=== PATIENT | female | born 1960 | race Caucasian/White ===

== ENCOUNTER 2018-07-31 15:43 | Emergency (ER) | payer OTHER, BC ==
[2018-07-31] MEDS ORDERED: PREDNISONE 20 MG TABLET PO ONE (17:31)
[2018-07-31] MEDS ORDERED: IPRATROPIUM/ALBUTEROL 0.5-2.5 MG/3 ML AMPUL NEB ONE (17:31)
--- NOTE | 2018-07-31 17:33 | ER Document Report ---
ED Medical Screen (RME) - General Chief Complaint: Cough Stated Complaint: COUGH Time Seen by Provider: 07/31/18 17:30 Primary Care Provider: SHOSHANA HUNTER DO [Primary Care Provider] - Follow up as needed Information source: Patient Notes: Patient presents complaining of cough for the past week and a half with wheezing and shortness of breath. Patient denies any fever. Patient denies any chest pain. I have greeted and performed a rapid initial assessment of this patient. A comprehensive ED assessment and evaluation of the patient, analysis of test results and completion of the medical decision making process will be conducted by additional ED providers. TRAVEL OUTSIDE OF THE [place] IN LAST 30 DAYS: No Physical Exam - Vital signs Vitals: Temp Pulse Resp BP Pulse Ox 98.8 F 86 18 140/88 H 97 07/31/18 16:30 07/31/18 16:30 07/31/18 16:30 07/31/18 16:30 07/31/18 16:30 - Respiratory Respiratory status: No respiratory distress Breath sounds: Nonproductive cough, Rhonchi, Wheezing Course - Vital Signs Vital signs: Temp Pulse Resp BP Pulse Ox 98.8 F 86 18 140/88 H 97 07/31/18 16:30 07/31/18 16:30 07/31/18 16:30 07/31/18 16:30 07/31/18 16:30 Doctor's Discharge - Discharge Referrals: SHOSHANA HUNTER DO [Primary Care Provider] - Follow up as needed
[2018-07-31] MEDS ORDERED: ALBUTEROL SULFATE 0.083% NEB 2.5 MG/3 ML AMPUL NEB SCH ×2 (17:47→20:15)
--- NOTE | 2018-07-31 18:04 | RADIOLOGY REPORT (SQ) ---
EXAM DESCRIPTION: CHEST 2 VIEWS COMPLETED DATE/TIME: 07/31/2018 5:57 pm REASON FOR STUDY: cough COMPARISON: 02/03/2014 EXAM PARAMETERS: NUMBER OF VIEWS: two views TECHNIQUE: Digital Frontal and Lateral radiographic views of the chest acquired. RADIATION DOSE: NA LIMITATIONS: none FINDINGS: LUNGS AND PLEURA: No opacities, masses or pneumothorax. No pleural effusion. MEDIASTINUM AND HILAR STRUCTURES: No masses or contour abnormalities. HEART AND VASCULAR STRUCTURES: Heart normal size. No evidence for failure. BONES: No acute findings. HARDWARE: Right axillary clips. Venous access catheter tip unchanged. OTHER: Right mastectomy. IMPRESSION: NO ACUTE RADIOGRAPHIC FINDING IN THE CHEST. TECHNICAL DOCUMENTATION: JOB ID: [id number] [employer]- All Rights Reserved Reading location - IP/workstation name: [email or web address]
--- NOTE | 2018-07-31 23:38 | ER Document Report ---
ED General - General Chief Complaint: Cough Stated Complaint: COUGH Time Seen by Provider: 07/31/18 17:30 Primary Care Provider: SHOSHANA HUNTER DO [Primary Care Provider] - Follow up as needed Mode of Arrival: Ambulatory Information source: Patient TRAVEL OUTSIDE OF THE [place] IN LAST 30 DAYS: No - HPI Patient complains to provider of: Cough, congestion, wheezing Onset: Last week Onset/Duration: Gradual Quality of pain: No pain Severity: Moderate Associated symptoms: Nonproductive cough, Shortness of breath. denies: Chest pain, Chills, Fever Exacerbated by: Denies Relieved by: Other - Steroids and breathing treatments Similar symptoms previously: No Recently seen / treated by doctor: Yes Notes: Patient is a 57-year-old female who comes in at the request of her primary care doctor at the [place]. She has had about a week of chest congestion, coughing, wheezing, and shortness of breath. No history of reactive airway disease in the past. No reports of fever. No reports of productive sputum or hemoptysis. The doctor's office apparently heard "all kinds of noises" and told her to come here to get checked out for pneumonia. Past Medical History - General Information source: Patient - Social History Smoking Status: Former Smoker Frequency of alcohol use: None Drug Abuse: None Family History: Reviewed & Not Pertinent Patient has suicidal ideation: No Patient has homicidal ideation: No Neurological Medical History: Reports: Hx Migraine Renal/ Medical History: Denies: Hx Peritoneal Dialysis Psychiatric Medical History: Reports: Hx Depression - with anxiety Past Surgical History: Reports: Hx Cholecystectomy, Hx Hysterectomy, Hx Mastectomy - right Review of Systems - Review of Systems Constitutional: denies: Chills, Fever EENT: No symptoms reported Cardiovascular: No symptoms reported Respiratory: Cough, Short of breath, Wheezing. denies: Hurts to breathe, Hemoptysis, Sputum, Stridor Gastrointestinal: denies: Abdominal pain, Diarrhea, Nausea, Vomiting Genitourinary: No symptoms reported Female Genitourinary: No symptoms reported Musculoskeletal: No symptoms reported Skin: No symptoms reported Hematologic/Lymphatic: No symptoms reported Neurological/Psychological: No symptoms reported -: Yes All other systems reviewed and negative Physical Exam - Vital signs Vitals: Temp Pulse Resp BP Pulse Ox 98.8 F 86 18 140/88 H 97 07/31/18 16:30 07/31/18 16:30 07/31/18 16:30 07/31/18 16:30 07/31/18 16:30 - General General appearance: Appears well, Alert In distress: None - HEENT Head: Normocephalic, Atraumatic Eyes: Normal Conjunctiva: Normal Extraocular movements intact: Yes Pupils: PERRL Ears: Normal External canal: Normal Tympanic membrane: Normal Nasal: Normal Mouth/Lips: Normal Mucous membranes: Normal Pharynx: Normal Neck: Normal - Respiratory Respiratory status: No respiratory distress Chest status: Nontender Breath sounds: Normal Chest palpation: Normal - Cardiovascular Rhythm: Regular Heart sounds: Normal auscultation Murmur: No - Abdominal Inspection: Normal Distension: No distension Bowel sounds: Normal Tenderness: Nontender Organomegaly: No organomegaly - Back Back: Normal - Extremities Notes: Moves all extremities well. Calves are not swollen or tender. - Neurological Neuro grossly intact: Yes - Psychological Associated symptoms: Normal affect, Normal mood - Skin Skin Temperature: Warm Skin Moisture: Dry Skin irregularity: negative: Rash Course - Re-evaluation Re-evalutation: 08/01/18 00:08 Patient was originally screened several hours ago and has sat in the lobby. She received prednisone and multiple breathing treatments. Her breathing has improved. Oxygen saturation is 100% on room air. Auscultation reveals clear breath sounds with no respiratory distress. She is not tachypneic. She is not tachycardic. She is not have any pain or swelling. This case does not present like a pulmonary embolism. She has a very moist horrific hacking cough and I think we can safely prescribe her some antibiotics, steroids, and metered-dose inhaler. - Vital Signs Vital signs: Temp Pulse Resp BP Pulse Ox 98.8 F 86 18 140/88 H 97 07/31/18 16:30 07/31/18 16:30 07/31/18 16:30 07/31/18 16:30 07/31/18 16:30 - Diagnostic Test Radiology reviewed: Reports reviewed Discharge - Discharge Clinical Impression: Chest cold, Bronchospasm Disposition: HOME, SELF-CARE Instructions: Upper Respiratory Illness ([facility]), Bronchitis With Bronchospasm (Wheezing) ([facility]) Prescriptions: Albuterol Sulfate [Proair HFA Inhalation Aerosol 8.5 gm MDI] 2 puff IH Q4H PRN #1 mdi PRN Reason: Azithromycin [Zithromax 250 mg Tablet] 250 mg PO ASDIR PRN #6 tablet PRN Reason: Prednisone [Deltasone 20 mg Tablet] 3 tab PO DAILY 5 Days #15 tablet Referrals: SHOSHANA HUNTER DO [Primary Care Provider] - Follow up tomorrow
[2018-08-01] MEDS ORDERED: CEFTRIAXONE INJ 1000 MG VIAL IM ONE (00:03)
[2018-08-01] MEDS ORDERED: LIDOCAINE 1% INJ (10 MG/ML) 10 ML MDV ONE (00:08)
[2018-08-01 00:46] VITALS: BP 135/75
== END 2018-08-01 00:46 | disposition home or self-care (01) ==
LOC: ER 15:43
DX: J98.01 Acute bronchospasm (principal); R05 Cough; R06.2 Wheezing; Z90.49 Acquired absence of other specified parts of digestive tract; Z90.710 Acquired absence of both cervix and uterus
CPT/HCPCS: 94640 ×2; 99283; 96372; 71046; J7512; J0696; J7620

== ENCOUNTER 2019-04-17 07:00 | Day surgery (SDC) | payer OTHER, BC ==
[2019-04-17] MEDS ORDERED: PROPOFOL INJ 200 MG/20 ML VIAL IV ONE (07:27)
--- NOTE | 2019-04-17 08:36 | Operative Report ---
Operative Report DATE OF SURGERY: 04/17/19 Operative Report: The risks, benefits and alternatives of the procedure including the risk of bleeding, perforation requiring surgery have been explained to the patient in detail and informed consent has been obtained. The patient is placed in the left, lateral decubital position. Timeout was called. Propofol medication is administered. Rectal examination is done which did not reveal any masses, tears or fissures. An Olympus videoscope was introduced into the patient's rectum. Scope was then carefully advanced all the way to the cecum. The cecum was identified by the usual anatomical landmarks including the ileocecal valve as well as the appendiceal office. Photodocumentation is obtained. Scope was then sequentially pulled back via the various segments of the colon including the ascending colon, hepatic flexure, transverse colon, splenic flexure, descending colon and finally into the rectosigmoid portions of the colon. Retroflexion maneuver is performed. Prep was good. PREOPERATIVE DIAGNOSIS: Personal history of polyp POSTOPERATIVE DIAGNOSIS: Transverse colon polyp removed via biopsy forceps. Internal hemorrhoids OPERATION: Colonoscopy with biopsy SURGEON: MARINO GARCIA ANESTHESIA: LMAC TISSUE REMOVED OR ALTERED: As noted above. COMPLICATIONS: None. ESTIMATED BLOOD LOSS: None. INTRAOPERATIVE FINDINGS: As noted above. PROCEDURE: Patient tolerated the procedure well. No immediate postprocedure complications are noted. Patient is discharged in good condition. Discharge date 04/17/2019. Discharge diet: Regular. Discharge activity: Regular. 2 to 3-week follow-up to discuss findings. Patient is instructed to call the office or proceed to the emergency room should there be any further questions. Wait on the pathology. 3 to 5-year surveillance colonoscopy.
[2019-04-17 08:51] VITALS: BP 117/81
== END 2019-04-17 09:02 | disposition home or self-care (01) ==
LOC: END 07:00
PROVIDERS: ATTEND Internal Medicine Gastroenterology
DX: Z12.11 Encounter for screening for malignant neoplasm of colon (principal); D12.3 Benign neoplasm of transverse colon; K64.8 Other hemorrhoids; Z86.010 Personal history of colon polyps; Z87.891 Personal history of nicotine dependence
CPT/HCPCS: 45380; 88305 ×2; J2704; J1642; 811